=== PATIENT | male | born 1980 | race Caucasian/White ===

== ENCOUNTER 2022-08-05 06:05 | Emergency (ER) | payer OTHER ==
[2022-08-05] MEDS: Tetracaine HCl/PF 0.5% 4 ML Bottle EYERT ONE (06:25)
[2022-08-05] MEDS: Sodium Chloride 0.9% 1,000 ML IV SCH (06:35)
[2022-08-05] MEDS: Sodium Chloride 0.9% 1,000 ML ONE (07:20)
== END 2022-08-05 07:00 | disposition home or self-care (01) ==
LOC: KA.ED 06:05
DX: H11.421 Conjunctival edema, right eye (principal); H10.11 Acute atopic conjunctivitis, right eye
CPT/HCPCS: 99283; J7030